=== PATIENT | female | born 1940 ===

== ENCOUNTER 2017-10-09 10:13 | Day surgery (SDC) | payer MEDICARE, MEDICAID ==
[2017-10-09] MEDS ORDERED: Clindamycin 2% Vaginal Cream(40 gm) ONE (11:20)
[2017-10-09] MEDS ORDERED: Lidocaine 1%/Epinephrine 1:100000 30 ml vial IJ ONE (11:45)
[2017-10-09] MEDS ORDERED: Bupivacaine 0.5% Inj(30mL) IJ ONE (11:45)
[2017-10-09] MEDS ORDERED: Midazolam 2 MG/2 ML VIAL ONE (12:02)
[2017-10-09] MEDS ORDERED: Propofol 10 mg/ml Inj (20 ML) ONE (12:02)
[2017-10-09] MEDS ORDERED: Lidocaine Hydrochloride 5 ML INJ ONE (12:02)
[2017-10-09] MEDS ORDERED: ePHEDrine 50 mg/ml Inj ONE (12:03)
[2017-10-09] MEDS ORDERED: Bacitracin 50,000 UNIT in Sodium Chloride 0.9% Irrig 1,000 ML IR SCH (12:15)
[2017-10-09] MEDS ORDERED: Gentamicin 160 MG in Sodium Chloride 0.9% 100 ML IVPB ONE (12:58)
[2017-10-09] MEDS ORDERED: Lactated Ringer's 1,000 ML IV ONE (13:05)
[2017-10-09] MEDS ORDERED: Ciprofloxacin 400mg/200ml D5W 400 MG/200 ML BAG IVPB ONE (13:09)
[2017-10-09] MEDS ORDERED: HYDROmorphone 0.5 mg/0.5 ml ISec IVP PRN (13:47)
--- NOTE | 2017-10-09 14:07 | PCM.SURG1 ---
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
[2017-10-09 18:02] VITALS: BP 112/72; PULSE 70; RESP 18; TEMP 97; O2SAT 100
--- NOTE | 2017-10-10 01:42 | OP ---
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 SURGEON: Nik Alvarado MD DESCRIPTION OF PROCEDURE: The procedure is as follows. Prior to procedure, the patient was asked to sign a detailed informed consent in front of her son explaining all risks, complications, and alternative methods of treating stress incontinence due to bladder neck hypermobility. We explained the special complications possible due to the use of a sling and reviewed altered methods of treatment. The patient agreed to proceed with this procedure and accept risks. Consent was signed. The patient was brought into the room, and she received prophylactic antibiotics. She was placed in the lithotomy position and a weighted speculum was placed in the vagina. Schroeder catheter was inserted. Bladder was drained. The area to be incised and the vagina was marked with a marking pen after determining the location of the bladder neck by palpating the Schroeder balloon. The incision was made and carried down to the vaginal mucosa. Two Allis clamps were placed on the cut edges of the incision and blunt sharp dissection was used to dissect laterally to the urethra, while palpating the urethra and being sure not to injure it. Once the proper planes were located, the surgeon's gloved finger could be inserted behind the pubic bone on both sides. Two small incisions were made in the suprapubic area and carried down through the subcutaneous tissues. A spinal needle was used to inject normal saline in the retroperitoneum and then the trocar used to puncture the rectus fascia just superior to the pubic bone. The trocar was then passed on the posterior surface of the pubic bone down to meet the surgeon's gloved finger in the vaginal excision. The left side was done first, then the right side. Once both trocars were placed, the Schroeder catheter was removed and the patient cystoscoped with both 30 and 70 degrees lens. There was no evidence of perforation of the bladder or urethra. The scope was removed. The bladder then was recatheterized with the Schroeder catheter and the sling was fixed to the two trocars. They were pulled upward with the Yuli clamp between the sling and the urethra, and they were snugged up to the Yuli clamp leaving ample space between the urethra and sling. The plastic was then removed by cutting the central blue luna and pulling the plastic sheeting upwards there by deploying the . It was snugged slightly to the proper adjustment still leaving plenty of space between the sling and the urethra and then the superior areas of the suprapubic sling. The access was trimmed just below the incision. The Yuli clamp was removed. Schroeder catheter was replaced prior to tensioning the sling and the vaginal incision was closed with 3-0 Chromic suture in a discontinuous fashion. The skin was then closed with skin bev after copious irrigation of both incisions. Antibiotic vaginal pack was inserted into the vagina and a dry sterile dressing was placed on suprapubic area. The patient will be discharged with Schroeder catheter for removal tomorrow. Complete instructions were given. Nik Alvarado MD
== END 2017-10-09 18:05 | disposition home or self-care (01) ==
LOC: C.SDS 10:13
PROVIDERS: ATTEND Urology
DX: N39.3 Stress incontinence (female) (male) (principal); N39.9 Disorder of urinary system, unspecified; H40.9 Unspecified glaucoma; Z79.82 Long term (current) use of aspirin; I10 Essential (primary) hypertension
CPT/HCPCS: 57288; C1771; J0744; J1580; J2250; J2704; J3010; J7120

== ENCOUNTER 2018-05-23 13:14 | Day surgery (SDC) | payer MEDICARE ==
[2018-05-22 12:53] VITALS: BMI 25.7
[2018-05-23] MEDS ORDERED: Propofol 10 mg/ml Inj (20 ML) ONE (14:37)
[2018-05-23] MEDS ORDERED: Midazolam 2 MG/2 ML VIAL ONE (14:37)
[2018-05-23] MEDS ORDERED: Ciprofloxacin 400mg/200ml D5W 400 MG/200 ML BAG IVPB ONE (14:45)
[2018-05-23] MEDS ORDERED: HYDROmorphone 0.5 mg/0.5 ml ISec IVP PRN (15:09)
[2018-05-23 16:36] VITALS: RESP 16; O2SAT 97
[2018-05-23 17:53] VITALS: BP 115/68; PULSE 63; TEMP 97.7
--- NOTE | 2018-05-31 06:50 | OP ---
PROCEDURE DATE: 05/23/2018 PREOPERATIVE DIAGNOSES: Hematuria and multiple bladder lesions. POSTOPERATIVE DIAGNOSES: Hematuria and multiple bladder lesions. PROCEDURES: Cystoscopy, multiple biopsy and fulguration of bladder lesions. DESCRIPTION OF PROCEDURE: While the patient in lithotomy position and after starting anesthesia, genitalia were prepped and draped in a sterile fashion. The patient was given Cipro preop, and cystoscopy was done which revealed the mucosa abnormal in multiple areas which hyperplasia versus tumor. The orifices and the trigone were normal. No stone. Multiple biopsies were taken from those lesions and area was fulgurated. The patient tolerated the procedure well. After emptying the bladder, she was transferred to the recovery room in stable condition. Linsey Bailey MD
== END 2018-05-23 17:53 | disposition home or self-care (01) ==
LOC: C.SDS 13:14
PROVIDERS: ATTEND Specialist
DX: N32.9 Bladder disorder, unspecified (principal); R31.0 Gross hematuria
CPT/HCPCS: 52204; 88305; J0744